=== PATIENT | male | born 1940 | race Caucasian/White ===

== ENCOUNTER 2016-05-13 15:10 | Emergency (ER) | payer MEDICARE, BC ==
[~2016-05-13] VITALS: Ht 175.3 cm; Wt 87.0 kg
[~2016-05-13 15:10] MED LIST: ALLO300T2 PO; ASPI81 PO; GLIP-158 PO; GLUCTAB PO; HYDR12.56 PO; LEVEMIR SQ; METO100T9 PO; MULT-65 PO; OMEG100037 PO; SITA100 PO; ZOCO40TA PO; [UNRECOGNIZED DRUG - CODE] PO
[2016-05-13 15:14] VITALS: BP 225/112; PULSE 86; RESP 16; TEMP 97.7; O2SAT 98
[2016-05-13] MEDS ORDERED: TRAD5TAB PO (15:32)
[2016-05-13] MEDS ORDERED: INSU1INJ5 SQ (15:32)
[2016-05-13] MEDS ORDERED: METF500T PO (15:32)
[2016-05-13] MEDS ORDERED: SIMV20TA PO (15:32)
[2016-05-13] MEDS ORDERED: TRAN1TAB PO (15:32)
[2016-05-13] MEDS ORDERED: FISHCAP4 PO (15:32)
[2016-05-13] MEDS ORDERED: ALLO300T2 PO (15:32)
[2016-05-13] MEDS ORDERED: GLIP-157 PO (15:32)
[2016-05-13] MEDS ORDERED: HYDR12.57 PO (15:32)
[2016-05-13] MEDS ORDERED: ASPI1TAB69 PO (15:32)
[2016-05-13] MEDS ORDERED: METO25TA6 PO (15:32)
[2016-05-13] MEDS ORDERED: SITA1TAB2 PO (15:32)
--- NOTE | 2016-05-13 15:44 | PD ---
HPI Chief Complaint: Abdominal Pain Time Seen by Provider: 15:26 Travel History International Travel<30 days: No Contact w/Intl Traveler<30days: No Traveled to known affect area: No History of Present Illness HPI This patient developed some left flank pain yesterday. It has been intermittent since that time. It radiates toward his left groin. He has no dysuria or hematuria or fever or injury. He noticed that his blood pressure for the last couple of days it's been very high. He has been compliant with his medication. Currently 225 systolic. He has no headache or neurologic complaint. Symptoms severity is moderate. No alleviating factors. PFSH Past Medical History Diabetes: Yes Patient Takes Glucophage: No Gout: Yes Hypertension: Yes Tetanus Vaccination: < 5 Years Influenza Vaccination: Yes Past Surgical History Cholecystectomy: Yes Other Surgery: Yes (Achilles tendon repair, BL knee arthroscopy, basal cell skin CA removal) Family History Family Hypercholesterolemia: Yes Social History Alcohol Use: Yes (Twice/week) Tobacco Use: No Substance Use: No Allergies-Medications (Allergen,Severity, Reaction): Coded Allergies: No Known Allergies (Verified , 05/13/16) Reported Meds & Prescriptions Reported Meds & Active Scripts Active Reported Tradjenta (Linagliptin) 5 Mg Tab 5 Mg PO DAILY Allopurinol 300 Mg Tab 300 Mg PO DAILY Aspirin 81 Mg Tabdr 81 Mg PO DAILY Fish Oil + D3 (Fish Oil-Cholecalciferol) 1,200-1,000 Mg-Unit Cap 1 Cap PO DAILY Simvastatin 20 Mg Tab 20 Mg PO DAILY Hydrochlorothiazide 12.5 Mg Cap 12.5 Mg PO DAILY Metoprolol Succinate ER 24 HR (Metoprolol Succinate) 25 Mg Tab 25 Mg PO DAILY Trandolapril-Verapamil 4-240 Mg Tab 1 Tab PO DAILY Glipizide XL (Glipizide) 5 Mg Daniella 5 Mg PO DAILY Take with breakfast or first main meal of the day Januvia (Sitagliptin Phosphate) 100 Mg Tab 100 Mg PO DAILY Metformin (Metformin HCl) 500 Mg Tab 500 Mg PO BIDPC With meals Levemir Flextouch Pen Inj (Insulin Detemir) 300 unit/3 ML Pen 1 Units SQ Review of Systems General / Constitutional: No: Fever Eyes: No: Visual changes HENT: No: Headaches Cardiovascular: No: Chest Pain or Discomfort Respiratory: No: Shortness of Breath Gastrointestinal: No: Abdominal Pain Genitourinary: Positive: Flank Pain, No: Dysuria Musculoskeletal: No: Pain Skin: No Rash Neurologic: No: Weakness Psychiatric: No: Depression Endocrine: No: Polydipsia Hematologic/Lymphatic: No: Easy Bruising Physical Exam Narrative GENERAL: Well-nourished, well-developed patient in no apparent distress. SKIN: Warm and dry. HEAD: Atraumatic. Normocephalic. EYES: Pupils equal and round. No scleral icterus. No injection or drainage. ENT: No nasal bleeding or discharge. Mucous membranes pink and moist. NECK: Trachea midline. No JVD. CARDIOVASCULAR: Regular rate and rhythm. No murmur appreciated. RESPIRATORY: No accessory muscle use. Clear to auscultation. Breath sounds equal bilaterally. GASTROINTESTINAL: Abdomen soft, non-tender, nondistended. Hepatic and splenic margins not palpable. MUSCULOSKELETAL: No obvious deformities. No clubbing. No cyanosis. No edema. NEUROLOGICAL: Awake and alert. No obvious cranial nerve deficits. Motor grossly within normal limits. Normal speech. PSYCHIATRIC: Appropriate mood and affect; insight and judgment normal. Data Data Last Documented VS Vital Signs Date Time Temp Pulse Resp B/P Pulse Ox O2 Delivery O2 Flow Rate FiO2 05/13/16 16:15 215/95 05/13/16 15:14 97.7 86 16 98 Orders Clonidine (Catapres) (05/13/16 15:45) Ct Abd/Pel W/O Iv Contrast (05/13/16 ) Urinalysis - C+S If Indicated (05/13/16 15:34) Labs Laboratory Tests Test 05/13/16 15:42 Urine Collection Type CLEAN CATCH Urine Color STRAW Urine Turbidity CLEAR Urine pH 5.5 Urine Specific Bruce 1.008 Urine Protein NEG mg/dL Urine Glucose (UA) 500 mg/dL Urine Ketones NEG mg/dL Urine Occult Blood TRACE Urine Nitrite NEG Urine Bilirubin NEG Urine Leukocyte Esterase NEG Urine RBC 0-3 /hpf Microscopic Urinalysis Comment CULT NOT INDICATED MDM Medical Decision Making Medical Screen Exam Complete: Yes Emergency Medical Condition: Yes Medical Record Reviewed: Yes Differential Diagnosis Accelerated hypertension, kidney stone, AAA Narrative Course I have reviewed the patient's electronic medical record. Accu-Chek 259 I gave him a dose of clonidine for chloride of hypertension And will be reassessed CT of abdomen and pelvis is negative for cause of pain Urinalysis is clean of infection, reveals increased glucose as noted on Accu- Chek On recheck he feels improved Blood pressure 185 systolic He will check and recorded daily and discuss with his primary physician on Sunday Diagnosis Primary Impression: Acute left flank pain Additional Impression: Accelerated hypertension Additional Instructions: Check and record blood pressure daily The patient was advised to follow up with their physician and return if they worsen. Med/Other Pt SpecificInfo: Other Disposition: 01 DISCHARGE HOME Condition: Stable Luis Pike MD May 13, 2016 15:44
[2016-05-13 15:45] LABS: BLOOD, URINE TRACE (NEG); GLUCOSE,URINE 500 mg/dL (NEG); KETONE, URINE NEG (NEG); NITRITE,URINE NEG (NEG); PH, URINE 5.5 (5.0-8.5)
[2016-05-13] MEDS ORDERED: cloNIDine HCL 0.2 MG TAB PO ONE (15:45)
[2016-05-13 15:46] LABS: METHOD OF COLLECTION CLEAN CATCH; URINE COLOR STRAW (YELLW/STRAW)
[2016-05-13 15:49] LABS: COMMENT (UR) CULT NOT INDICATED; CULTURE IF INDICATED CULT NOT INDICATED; RBC, URINE 0-3 /hpf (0-3)
[2016-05-13 16:15] VITALS: BP 215/95
--- NOTE | 2016-05-13 16:23 | RADHPO ---
EXAM DATE/TIME: 05/13/2016 15:55 [facility] COMPARISON: No previous studies available for comparison. INDICATIONS : Left flank pain for two days. ORAL CONTRAST: No oral contrast ingested. RADIATION DOSE: 21.28 CTDIvol (mGy) MEDICAL HISTORY : Hypertension. diabetes SURGICAL HISTORY : Cholecystectomy. ENCOUNTER: Initial ACUITY: 2 days PAIN SCALE: 6/10 LOCATION: Left flank TECHNIQUE: Volumetric scanning of the abdomen and pelvis was performed. Using automated exposure control and ad justment of the mA and/or kV according to patient size, radiation dose was kept as low as reasonably achievable to obtain optimal diagnostic quality images. FINDINGS: Right side: No calcified stones. No evidence of hydronephrosis. No calcified stones along the course of the rig ht ureter. Left side: No calcified stones. No evidence hydronephrosis. Focal hypo-dense area in the cortex mid pole left kidney measuring 11 mm, probably representing an cortical cyst. Bladder: Smooth margins. No calcifications within the lumen. Other: Mild enlargement of the prostate causing an indentation on the base of the urinary bladder. Prostate was 5.8 cm. No dilated loops of small or large bowel. The appendix is identified and is normal in appearance. CONCLUSION: 1. No calcified renal stones or hydronephrosis. 2. Mild enlargement of the prostate. Ravi Herbert MD on May 13, 2016 at 16:19 Board Certified Radiologist. This report was verified electronically.
[2016-05-13 16:57] VITALS: BP 180/78
[2016-05-16] MEDS ORDERED: PERC5TAB12 PO (09:03)
[2016-06-27] MEDS ORDERED: TETA1INJ6 IM (08:41)
== END 2016-05-13 17:00 | disposition home or self-care (01) ==
LOC: PHED 15:10
DX: R10.84 Generalized abdominal pain (principal); I10 Essential (primary) hypertension; E11.9 Type 2 diabetes mellitus without complications; Z79.4 Long term (current) use of insulin
CPT/HCPCS: 74176; 81001

== ENCOUNTER → 2016-05-16 | Outpatient (CLI) | payer MEDICARE, BC ==
[~2016-05-16] MED LIST changes: +ASPI1TAB69 PO; +FISHCAP4 PO; +GLIP-157 PO; +HYDR12.57 PO; +INSU1INJ5 SQ; +METF500T PO; +METO25TA6 PO; +PERC5TAB12 PO; +SIMV20TA PO; +SITA1TAB2 PO; +TETA1INJ6 IM; +TRAD5TAB PO; +TRAN1TAB PO
[2016-05-16 10:13] LABS: ALKALINE PHOSPHATASE 115 U/L (45-117); ALT (GPT) 39 U/L (12-78); AMYLASE 71 U/L (25-115); ANION GAP 11 MEQ/L (5-15); AST (GOT) 26 U/L (15-37); BICARBONATE 26.1 MEQ/L (21.0-32.0); BLOOD UREA NITROGEN 19 MG/DL (7-18); CHLORIDE 104 MEQ/L (98-107); GLOMERULAR FILTRATION RATE 58 ML/MIN (>89); GLUCOSE,FASTING 176 MG/DL (74-99); HDL CHOLESTEROL 35.2 MG/DL (40.0-60.0); LDL CHOLESTEROL 49 MG/DL (0-99); POTASSIUM 4.3 MEQ/L (3.5-5.1); SODIUM (NA) 141 MEQ/L (136-145); TOTAL BILIRUBIN ADULT 0.5 MG/DL (0.2-1.0)
== END ==
LOC: CLAB 09:25
PROVIDERS: ATTEND Family Medicine
DX: R10.9 Unspecified abdominal pain (principal)
CPT/HCPCS: 36415; 80053; 80061; 82150; 83690; G0463; 99214